=== PATIENT | male | born 1980 | race Caucasian/White ===

== ENCOUNTER 2020-03-25 16:34 | Emergency (ER) | payer OTHER ==
[~2020-03-25] VITALS: Ht 170.2 cm; Wt 99.8 kg
[2020-03-25 16:53] VITALS: Ht 170.2 cm; Wt 99.8 kg
[2020-03-25 18:15] LABS: BASOPHIL % 0.5 % (0-2)
[2020-03-25 18:23] LABS: PLATELET COUNT 127 x10^3mcL (130-400)
[2020-03-25 19:00] LABS: ALKALINE PHOSPHATASE 114 U/L (46-116); ALT/SGPT 148 U/L (16-63); AST/SGOT 149 U/L (15-37); BILIRUBIN TOTAL 2.11 mg/dL (0.20-1.00); CALCIUM 9.8 mg/dL (8.5-10.1); CARBON DIOXIDE 30.1 mmol/L (21-32); CHLORIDE SERUM 97 mmol/L (98-107); GFR1 > 60 mL/min; GLUCOSE SERUM 145 mg/dL (74-106); LIPASE 143 IU/L (73-393); POTASSIUM SERUM 3.9 mmol/L (3.5-5.1); SODIUM SERUM 136 mmol/L (136-145)
[2020-03-25 19:01] LABS: TOTAL PROTEIN, SERUM 9.1 g/dL (6.4-8.2)
[2020-03-25 22:42] VITALS: BP 119/75
== END 2020-03-25 22:42 | disposition home or self-care (01) ==
LOC: ED 16:34
PROVIDERS: Emergency Medicine
DX: K70.0 Alcoholic fatty liver (principal); F10.20 Alcohol dependence, uncomplicated
CPT/HCPCS: Q0092